=== PATIENT | female | born 1935 | race Caucasian/White ===

== ENCOUNTER 2016-12-28 10:48 | Emergency (ER) | payer OTHER ==
[~2016-12-28] VITALS: Ht 167.6 cm; Wt 84.0 kg
[~2016-12-28 10:48] MED LIST: ASPEC325 PO; CHN5 PO; CLB100 PO; CRS10 PO; EZET10TA63 PO; FLX10 PO; LISI-725 PO; LSX20 PO; METO50TA7 PO; NTRGSL/4 UT; OXYC-57 PO
[2016-12-28 10:51] VITALS: TEMP 36.4; Ht 167.6 cm; Wt 84.0 kg
[2016-12-28 11:23] VITALS: O2SAT 93
[2016-12-28 11:43] LABS: BASO % 0.3 %; BASO ABS # 0.02 K/uL (0-0.2); COMPLETE YES; EOS % 2.2 %; HEMATOCRIT 40.5 % (37-47); IG% 0.1 %; LYMPH % 15.9 %; MEAN CORPUSCULAR HEMOGLOBIN 30.8 pg (25-34); MEAN CORPUSCULAR HGB CONC 33.8 g/dl (32-36); MEAN PLATELET VOLUME 10.6 fL (7.4-10.4); MONO % 6.7 %; NEUT % 74.8 %; PLATELET COUNT 211 K/uL (130-400); RED BLOOD COUNT 4.45 M/uL (4.2-5.4); WHITE BLOOD COUNT 7.56 K/uL (4.8-10.8)
[2016-12-28 11:51] LABS: ALT/SGPT 14 U/L (12-78); AST/SGOT 17 U/L (15-37); BLOOD UREA NITROGEN 15 mg/dl (7-18); BUN/CREATININE RATIO 8.8 (10-20); CARBON DIOXIDE 28 mmol/L (21-32); CHLORIDE 102 mmol/L (98-107); GLUCOSE 219 mg/dl (70-99); PARTIAL THROMBOPLASTIN RATIO 1.1; POTASSIUM 4.2 mmol/L (3.5-5.1); SODIUM 141 mmol/L (136-145)
--- NOTE | 2016-12-28 11:55 | EMERGENCY ROOM VISIT NOTE ---
History Report prepared by Juan Pablo: Shwetha Erazo Under the Supervision of: Dr. Sarwat Soliman M.D. First contact with patient: 11:24 Chief Complaint: WEAKNESS Stated Complaint: CAN'T WALK Nursing Triage Summary: "I can't walk." Pt reports fell last night. Pt reports generalized pain, nausea , weakness. Pt reports numbness in right arm and bilateral legs for several days. Pt was seen at PCP and was told she had restless leg syndrome. History of Present Illness The patient is a 81 year old female who presents to the Emergency Room with complaints of an episode of weakness that started three days ago. She states that she went to [facility] two weeks ago for pain in her legs that went to her chest. This pain is only in her right leg and feels like her heart is "beating in her leg". She notes that the pain starts in her toes and works its way to her hips. She reports numbness in her left leg. She states that the pain usually leaves in 3-4 minutes after onset. Last night, she notes that she fell from stubbing her toe because she was too weak to pick her feet up the whole way. She reports that she did hit her head during the fall. The patient complains of numbness in her left leg. throbbing in her right leg, and some nausea. She denies any headache, vomiting, abdominal pain, and urinary symptoms. The patient reports that her last bowel movement was yesterday. Source of History: patient Onset: three days ago Position: other (global) Quality: other (weak) Timing: constant Associated Symptoms: + nausea, + numbness, No abdominal pain, No headache, No urinary symptoms, No vomiting Note: The patient complains of throbbing in her right leg. Review of Systems All systems have been listed, reviewed, and are negative other than those previously mentioned. Please see Additional Medical History Sheet. Past Medical & Surgical Medical Problems: (1) Hx of blood clots Family History No pertinent family history stated. Social History Smoking Status: Former Smoker Marital Status: Housing Status: lives with significant other Current/Historical Medications Scheduled Aspirin (Aspirin Ec), 81 MG PO DAILY Cyanocobalamin (Vitamin B12 500MCG), 1,000 MCG PO DAILY Fish Oil ([place]ook-3), 1 CAP PO DAILY Lisinopril (Zestril), 20 MG PO DAILY Metoprolol Succ (Toprol Xl) (Toprol-Xl), 25 MG PO DAILY Nitroglycerin (Nitrostat), 0.4 MG UT PRN Simvastatin (Zocor), 40 MG PO QAM Scheduled PRN Cyclobenzaprine HCl (Cyclobenzaprine HCl), 10 MG PO TID PRN for Muscle Spasms Tramadol (Ultram), 50 MG PO Q8H PRN for Pain Allergies Coded Allergies: Acetaminophen (Verified Allergy, Mild, 12/28/16) Diclofenac (Verified Allergy, Mild, 12/28/16) Orphenadrine (Verified Allergy, Mild, 12/28/16) Penicillins (Verified Allergy, Mild, 12/28/16) Phenytoin (Verified Allergy, Mild, 12/28/16) Uncoded Allergies: ANTIPARKINSON (Allergy, Mild, 10/19/09) Physical Exam Vital Signs Date Time Temp Pulse Resp B/P Pulse Ox O2 Delivery O2 Flow Rate FiO2 12/28/16 15:06 110 12/28/16 14:02 113 22 110/60 95 Room Air 12/28/16 11:55 119 18 137/87 93 Room Air 12/28/16 11:23 93 Room Air 12/28/16 11:14 128 12/28/16 10:51 36.4 70 20 155/78 93 Room Air Physical Exam GENERAL: Patient awake, alert, oriented x 3. Patient follows commands. Patient does not appear toxic. Patient is adequately hydrated and well- nourished. SKIN: No erythema, pallor, cyanosis or rash HEENT: Normal head, pupils equal, reactive to light and accommodation. Ecchymosis around right orbit. Oral cavity and posterior pharynx appear normal. Neck: Without adenopathy, no neck vein distention. LUNGS: Clear to auscultation. No wheezes, no rales, no rhonchi. HEART: No murmurs. No gallops. No rubs ABDOMEN: No masses, no rebound, no hepatomegaly or splenomegaly. Obese. Soft, non-tender. EXTREMITIES: No signs of trauma. No pedal or pretibial edema. No calf or thigh tenderness. NEUROLOGIC: Cranial nerves II-XII within normal limits. Weakness in right arm and leg compared to left. NIH stoke score is 5. Medical Decision & Procedures ER Provider Diagnostic Interpretation: Radiology results as stated below per my review and radiologist interpretation: SINGLE VIEW CHEST CLINICAL HISTORY: Generalized weakness. FINDINGS: An AP, portable, upright chest radiograph is compared to chest x-ray and chest CT dated 04/22/2008. The examination is degraded by portable technique, apical lordotic positioning, and patient rotation. The heart is enlarged and there is atherosclerotic calcification of the thoracic aorta. The pulmonary vasculature is noncongested. Chronic interstitial thickening is unchanged. No airspace consolidation, large pleural effusion, or pneumothorax is seen. The skeletal structures are osteopenic. The bony thorax is grossly intact. IMPRESSION: Cardiomegaly with no acute cardiopulmonary abnormality. Electronically signed by: Skyler Quijano M.D. 12/28/2016 11:56 AM Dictated Date/Time: 12/28/2016 11:[address] SCAN OF THE BRAIN WITHOUT IV CONTRAST FINDINGS: Brain parenchyma: There are age-related involutional changes noting [id number] patchy subcortical and periventricular microangiopathic change. There is no hemorrhage or evidence of acute territorial ischemia by CT criteria. There is a noncalcified slightly hyperdense mass lesion centered in the high left parietal lobe adjacent to the falx as seen on image #23 with significant surrounding cytotoxic edema. This measures up to 2.0 cm. There is effacement of the overlying cortical sulci. No left right midline shift is seen. No extra-axial fluid collection is seen. Ventricles, sulci, cisterns: Prominent secondary to involutional change. Intracranial vasculature: There is atherosclerotic calcification of the cavernous carotid arteries. Calvarium: Unremarkable. Sinuses and mastoids: There is evidence of previous paranasal sinus surgery. Trace mucosal thickening is seen within the ethmoid sinuses. The remaining visualized paranasal sinuses are clear. The mastoid air cells are well pneumatized. Orbits: The bony orbits are grossly intact. There are bilateral ocular lens implants. There is an indeterminant 3 mm intraconal nodule in the left orbit seen on image #7. IMPRESSION: 1. There is a 2.0 cm high left parietal mass lesion with significant surrounding edema. This is pathologically indeterminant, and metastatic disease versus a primary brain tumor are the top differential considerations. Although this is located adjacent to the falciform ligament a meningioma is considered much less likely given the appearance of the lesion and lack of a dural tail. Contrast-enhanced MRI of the brain is recommended for further assessment. 2. No additional intracranial lesions are clearly identified by CT. 3. There is no hemorrhage, midline shift, or evidence of acute territorial ischemia by CT criteria. Electronically signed by: Skyler Quijano M.D. 12/28/2016 1:05 PM Dictated Date/Time: 12/28/2016 1:00 PM Laboratory Results 12/28/16 11:15 Red Blood Count 4.45, Mean Corpuscular Volume 91.0, Mean Corpuscular Hemoglobin 30.8, Mean Corpuscular Hemoglobin Concent 33.8, Mean Platelet Volume 10.6, Neutrophils (%) (Auto) 74.8, Lymphocytes (%) (Auto) 15.9, Monocytes (%) (Auto) 6.7, Eosinophils (%) (Auto) 2.2, Basophils (%) (Auto) 0.3, Neutrophils # (Auto) 5.65, Lymphocytes # (Auto) 1.20, Monocytes # (Auto) 0.51, Eosinophils # (Auto) 0.17, Basophils # (Auto) 0.02 12/28/16 11:15 Test 12/28/16 11:15 12/28/16 11:50 White Blood Count 7.56 K/uL (4.8-10.8) Red Blood Count 4.45 M/uL (4.2-5.4) Hemoglobin 13.7 g/dL (12.0-16.0) Hematocrit 40.5 % (37-47) Mean Corpuscular Volume 91.0 fL (80-100) Mean Corpuscular Hemoglobin 30.8 pg (25-34) Mean Corpuscular Hemoglobin Concent 33.8 g/dl (32-36) Platelet Count 211 K/uL (130-400) Mean Platelet Volume 10.6 fL (7.4-10.4) Neutrophils (%) (Auto) 74.8 % Lymphocytes (%) (Auto) 15.9 % Monocytes (%) (Auto) 6.7 % Eosinophils (%) (Auto) 2.2 % Basophils (%) (Auto) 0.3 % Neutrophils # (Auto) 5.65 K/uL (1.4-6.5) Lymphocytes # (Auto) 1.20 K/uL (1.2-3.4) Monocytes # (Auto) 0.51 K/uL (0.11-0.59) Eosinophils # (Auto) 0.17 K/uL (0-0.5) Basophils # (Auto) 0.02 K/uL (0-0.2) RDW Standard Deviation 45.1 fL (36.4-46.3) RDW Coefficient of Variation 13.6 % (11.5-14.5) Immature Granulocyte % (Auto) 0.1 % Immature Granulocyte # (Auto) 0.01 K/uL (0.00-0.02) Prothrombin Time 11.0 SECONDS (9.0-12.0) Prothromb Time International Ratio 1.0 (0.9-1.1) Activated Partial Thromboplast Time 28.9 SECONDS (21.0-31.0) Partial Thromboplastin Ratio 1.1 Anion Gap 11.0 mmol/L (3-11) Est Creatinine Clear Calc Drug Dose 27.9 ml/min Estimated GFR () 32.0 Estimated GFR (Non- 27.6 BUN/Creatinine Ratio 8.8 (10-20) Calcium Level 9.0 mg/dl (8.5-10.1) Total Bilirubin 0.5 mg/dl (0.2-1) Aspartate Amino Transf (AST/SGOT) 17 U/L (15-37) Alanine Aminotransferase (ALT/SGPT) 14 U/L (12-78) Alkaline Phosphatase 77 U/L (45-117) Troponin I < 0.015 ng/ml (0-0.045) Total Protein 7.3 gm/dl (6.4-8.2) Albumin 3.4 gm/dl (3.4-5.0) Globulin 3.9 gm/dl (2.5-4.0) Albumin/Globulin Ratio 0.9 (0.9-2) Urine Color YELLOW Urine Appearance CLEAR (CLEAR) Urine pH 5.0 (4.5-7.5) Urine Specific [place] 1.014 (1.000-1.030) Urine Protein NEG (NEG) Urine Glucose (UA) NEG (NEG) Urine Ketones NEG (NEG) Urine Occult Blood NEG (NEG) Urine Nitrite NEG (NEG) Urine Bilirubin NEG (NEG) Urine Urobilinogen NEG (NEG) Urine Leukocyte Esterase TRACE (NEG) Urine WBC (Auto) 1-5 /hpf (0-5) Urine RBC (Auto) 0-4 /hpf (0-4) Urine Hyaline Casts (Auto) 1-5 /lpf (0-5) Urine Epithelial Cells (Auto) 20-30 /lpf (0-5) Urine Bacteria (Auto) NEG (NEG) Laboratory results as stated above per my review. ECG Indication: weakness Rate (beats per minute): 109 Rhythm: sinus tachycardia Findings: no acute ischemic change, prolonged QT Comparison ECG Date: 04/26/08 Change: no significant change ED Course 1124: Past medical records reviewed. The patient was evaluated in room B12. A complete history and physical examination was performed. 1503: I reevaluated the patient and informed her of her results. She will be going to MRI. 1526: The patient was signed out to Dr. Araya. Medical Decision Differential Diagnoses include CVA, TIA, metabolic disorder, UTI, pneumonia, other infection. Multiple labs, EKG and imaging were obtained. Please see above. CT reveals a mass in her left parietal area. An MRI was suggested. That study is now pending. I did discuss the case briefly with the patient and family members. The case was signed off to Dr. Araya at 1535. Impression Primary Impression: Intracranial mass Scribe Attestation The scribe's documentation has been prepared under my direction and personally reviewed by me in its entirety. I confirm that the note above accurately reflects all work, treatment, procedures, and medical decision making performed by me. Departure Information Dispostion Still a Patient Referrals No Doctor, Assigned (PCP) Patient Instructions My [facility]
[2016-12-28 11:56] LABS: ALB/GLOB RATIO 0.9 (0.9-2); ALKALINE PHOSPHATASE 77 U/L (45-117)
--- NOTE | 2016-12-28 11:59 | DIAGNOSTIC IMAGING REPORT ---
SINGLE VIEW CHEST CLINICAL HISTORY: Generalized weakness. FINDINGS: An AP, portable, upright chest radiograph is compared to chest x-ray and chest CT dated 04/22/2008. The examination is degraded by portable technique, apical lordotic positioning, and patient rotation. The heart is enlarged and there is atherosclerotic calcification of the thoracic aorta. The pulmonary vasculature is noncongested. Chronic interstitial thickening is unchanged. No airspace consolidation, large pleural effusion, or pneumothorax is seen. The skeletal structures are osteopenic. The bony thorax is grossly intact. IMPRESSION: Cardiomegaly with no acute cardiopulmonary abnormality. Electronically signed by: Skyler Quijano M.D. 12/28/2016 11:56 AM Dictated Date/Time: 12/28/2016 11:55 AM
[2016-12-28 12:01] LABS: URINE APPEARANCE CLEAR (CLEAR); URINE BILIRUBIN NEG (NEG); URINE COLOR YELLOW; URINE EPITHELIAL CELL AUTO 20-30 /lpf (0-5); URINE NITRITE NEG (NEG); URINE SPECIFIC GRAVITY 1.014 (1.000-1.030); UROBILINOGEN NEG (NEG); ZZURINE CULT IF INDIC CATH NO
[2016-12-28 12:02] LABS: MANUAL MICROSCOPIC REQUIRED? NO; REVIEW REQ? NO
--- NOTE | 2016-12-28 13:07 | DIAGNOSTIC IMAGING REPORT ---
CT SCAN OF THE BRAIN WITHOUT IV CONTRAST CLINICAL HISTORY: Right-sided weakness. COMPARISON STUDY: No priors. TECHNIQUE: Unenhanced axial CT scan of the brain is performed from the vertex to the skull base. CT DOSE: 537.48 mGy.cm FINDINGS: Brain parenchyma: There are age-related involutional changes noting [id number] patchy subcortical and periventricular microangiopathic change. There is no hemorrhage or evidence of acute territorial ischemia by CT criteria. There is a noncalcified slightly hyperdense mass lesion centered in the high left parietal lobe adjacent to the falx as seen on image #23 with significant surrounding cytotoxic edema. This measures up to 2.0 cm. There is effacement of the overlying cortical sulci. No left right midline shift is seen. No extra-axial fluid collection is seen. Ventricles, sulci, cisterns: Prominent secondary to involutional change. Intracranial vasculature: There is atherosclerotic calcification of the cavernous carotid arteries. Calvarium: Unremarkable. Sinuses and mastoids: There is evidence of previous paranasal sinus surgery. Trace mucosal thickening is seen within the ethmoid sinuses. The remaining visualized paranasal sinuses are clear. The mastoid air cells are well pneumatized. Orbits: The bony orbits are grossly intact. There are bilateral ocular lens implants. There is an indeterminant 3 mm intraconal nodule in the left orbit seen on image #7. IMPRESSION: 1. There is a 2.0 cm high left parietal mass lesion with significant surrounding edema. This is pathologically indeterminant, and metastatic disease versus a primary brain tumor are the top differential considerations. Although this is located adjacent to the falciform ligament a meningioma is considered much less likely given the appearance of the lesion and lack of a dural tail. Contrast-enhanced MRI of the brain is recommended for further assessment. 2. No additional intracranial lesions are clearly identified by CT. 3. There is no hemorrhage, midline shift, or evidence of acute territorial ischemia by CT criteria. Electronically signed by: Skyler Quijano M.D. 12/28/2016 1:05 PM Dictated Date/Time: 12/28/2016 1:00 PM
[2016-12-28] MEDS ORDERED: ASPI81TA28 PO (13:38)
[2016-12-28] MEDS ORDERED: TRAM-10 PO (13:38)
[2016-12-28] MEDS ORDERED: FLX10 PO (13:38)
[2016-12-28] MEDS ORDERED: CYAN500T13 PO (13:40)
[2016-12-28] MEDS ORDERED: OMEG10007 PO (13:40)
[2016-12-28] MEDS ORDERED: SIMV40TA2 PO (13:40)
[2016-12-28] MEDS ORDERED: DEXAMETHASONE SOD INJ 10 MG/ML VIAL IV ONE (16:00)
[2016-12-28 17:47] VITALS: BP 149/72; PULSE 125; O2SAT 94
--- NOTE | 2016-12-28 22:05 | EMERGENCY ROOM VISIT NOTE ---
ED Visit Note First contact with patient: 15:39 Patient is an 81-year-old female that was evaluated by Dr. Soliman initially. She had complete workup along with a CT which showed a likely brain tumor with surrounding edema. Patient was signed out to me awaiting an MRI. At this time I discussed with the patient and reviewed the CT. I gave her IV steroids and contacted [facility]. I felt was prudent to transfer this patient at this time with a brain mass for further evaluation since she had a focal deficit. I discussed this with the neurosurgeon at [facility], patient was accepted. Patient was transferred via EMS and the risk and benefits were explained to the patient at length.
== END 2016-12-28 17:49 | disposition short-term general hospital (02) ==
LOC: C.EDB 10:49
DX: G93.9 Disorder of brain, unspecified (principal); Z86.2 Personal history of diseases of the blood and blood-forming organs and certain disorders involving the immune mechanism; Z87.891 Personal history of nicotine dependence; Z79.82 Long term (current) use of aspirin; Z79.899 Other long term (current) drug therapy; Z88.0 Allergy status to penicillin; Z88.6 Allergy status to analgesic agent; Z88.8 Allergy status to other drugs, medicaments and biological substances

== ENCOUNTER 2017-01-27 17:35 | Emergency (ER) | payer OTHER ==
[~2017-01-27] VITALS: Ht 170.2 cm; Wt 87.9 kg
[~2017-01-27 17:35] MED LIST changes: -ASPEC325 PO; +ASPI81TA28 PO; -CHN5 PO; -CLB100 PO; -CRS10 PO; +CYAN500T13 PO; -EZET10TA63 PO; -LSX20 PO; +OMEG10007 PO; -OXYC-57 PO; +SIMV40TA2 PO; +TRAM-10 PO
[2017-01-27 17:49] LABS: BASO % 0.1 %; BASO ABS # 0.01 K/uL (0-0.2); COMPLETE YES; EOS % 1.4 %; HEMATOCRIT 35.2 % (37-47); IG% 1.9 %; LYMPH ABS # 1.55 K/uL (1.2-3.4); MEAN CELL VOLUME 91.2 fL (80-100); MEAN CORPUSCULAR HEMOGLOBIN 29.8 pg (25-34); MEAN CORPUSCULAR HGB CONC 32.7 g/dl (32-36); MEAN PLATELET VOLUME 9.7 fL (7.4-10.4); MONO % 7.4 %; NEUT % 75.2 %; PLATELET COUNT 186 K/uL (130-400); RED BLOOD COUNT 3.86 M/uL (4.2-5.4); WHITE BLOOD COUNT 11.11 K/uL (4.8-10.8)
[2017-01-27 17:58] LABS: PARTIAL THROMBOPLASTIN RATIO 1.2; PROTHROMBIN TIME (PATIENT) 10.7 SECONDS (9.0-12.0)
--- NOTE | 2017-01-27 18:01 | DIAGNOSTIC IMAGING REPORT ---
CT HEAD WITHOUT CONTRAST (CT) CLINICAL HISTORY: Right-sided weakness. Brain carcinoma. COMPARISON STUDY: 12/28/2016 TECHNIQUE: Axial CT of the brain is performed from the vertex to the skull base. IV contrast was not administered for this examination. CT DOSE: 751.47 mGy.cm FINDINGS: Again evident is a left high parietal parafalcine 2 cm mass. There is surrounding vasogenic edema. Since the prior study, the patient has developed a perilesional hemorrhage measuring 34 mm. There is no CT evidence of acute cortical infarction. There is no significant midline shift. There are patchy white matter hypodensities likely on a small vessel basis. There is no evidence of pathologic ventricular dilatation. There is no evidence of acute sinusitis IMPRESSION: 1. 2 cm high left parietal parafalcine mass 2. Interval development of a perilesional 3.4 cm intraparenchymal hemorrhage 3. Vasogenic edema within the left parietal white matter Electronically signed by: Arnie Walker M.D. 01/27/2017 5:59 PM Dictated Date/Time: 01/27/2017 5:56 PM
[2017-01-27 18:14] LABS: BLOOD UREA NITROGEN 16 mg/dl (7-18); BUN/CREATININE RATIO 11.6 (10-20); CALCIUM 9.1 mg/dl (8.5-10.1); CARBON DIOXIDE 31 mmol/L (21-32); CHLORIDE 100 mmol/L (98-107); GLUCOSE 100 mg/dl (70-99); POTASSIUM 4.5 mmol/L (3.5-5.1); SODIUM 136 mmol/L (136-145)
[2017-01-27] MEDS ORDERED: DEXAMETHASONE SOD INJ 10 MG/ML VIAL IV ONE (18:15)
[2017-01-27 18:17] VITALS: Ht 170.2 cm; Wt 87.9 kg
[2017-01-27 18:24] LABS: CKMB/CK RATIO 2.2 (0-3.0)
[2017-01-27] MEDS ORDERED: SODIUM CHLORIDE 0.9% IV STA (18:30)
[2017-01-27] MEDS ORDERED: DESMOPRESSIN ACETATE IV STA (18:30)
--- NOTE | 2017-01-27 18:32 | DIAGNOSTIC IMAGING REPORT ---
CHEST ONE VIEW PORTABLE CLINICAL HISTORY: stroke symptoms WEAKNESS COMPARISON STUDY: 12/28/2016 FINDINGS: The heart is at the upper limits of normal in size. There is mild aortic tortuosity/ectasia. There is no focal pulmonary consolidation. There are no pleural effusions. There is mild central vascular prominence without evidence of overt failure.[ IMPRESSION: No active disease in the chest. Electronically signed by: Arnie Walker M.D. 01/27/2017 6:30 PM Dictated Date/Time: 01/27/2017 6:30 PM
[2017-01-27] MEDS ORDERED: IPRA1AER2 INH (18:40)
[2017-01-27] MEDS ORDERED: SIMV20TA2 PO (18:40)
[2017-01-27] MEDS ORDERED: DOCU-94 PO (18:40)
[2017-01-27] MEDS ORDERED: AMLO-110 PO (18:40)
[2017-01-27] MEDS ORDERED: GLC/500 PO (18:40)
[2017-01-27] MEDS ORDERED: LISI-461 PO (18:40)
[2017-01-27] MEDS ORDERED: CYAN10005 PO (18:40)
[2017-01-27] MEDS ORDERED: BRIM0.1S OPB (18:40)
[2017-01-27] MEDS ORDERED: METO25TA3 PO (18:40)
[2017-01-27] MEDS ORDERED: SENN-65 PO (18:40)
--- NOTE | 2017-01-27 19:13 | EMERGENCY ROOM VISIT NOTE ---
History Report prepared by Juan Pablo: Shwetha Erazo Under the Supervision of: Dr. Matty Palm M.D. First contact with patient: 17:36 Chief Complaint: WEAKNESS Stated Complaint: WEAKNESS History of Present Illness The patient is an 82 year old female who presents to the Emergency Room with complaints of an episode of weakness in her right arm starting just prior to arrival. She states that she was going to the bathroom and started to experience the weakness. She reports that she decided to call 911 because she had just had her first treatment of radiation therapy today for her brain tumors. The patient notes that she does not know the specific cancer. The patient denies any neck pain, headache, chest pain, shortness of breath, and abdominal pain. 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 Her brain tumor was found one month ago at this facility and she was transferred to [place]. Source of History: patient Onset: prior to arrival Position: other (global) Quality: other (global) Timing: other (episode) Associated Symptoms: + weakness, No SOB, No abdominal pain, No chest pain, No headache, No neck pain Review of Systems See HPI for pertinent positives & negatives. A total of 10 systems reviewed and were otherwise negative. Past Medical & Surgical Medical Problems: (1) Hx of blood clots Family History No pertinent family history Social History Smoking Status: Former Smoker Marital Status: Housing Status: lives with significant other Current/Historical Medications Scheduled Amlodipine (Norvasc), 5 MG PO QAM Aspirin (Aspirin Ec), 81 MG PO DAILY Brimonidine Tartrate (Alphagan P Oph), 1 DROP OPB TID Cyanocobalamin (Vitamin B-12), 1,000 MCG PO QAM Docusate Sodium (Colace), 100 MG PO BID Fish Oil ([place]-3), 1 CAP PO DAILY Ipratropium-Albuterol (Combivent Respimat), 1 PUFFS INH BID Lisinopril (Zestril), 10 MG PO QAM Metformin Hcl (Glucophage), 500 MG PO BIDM Metoprolol Succ (Toprol Xl) (Toprol-Xl), 25 MG PO QAM Senna/Docusate Sod (Senokot S), 1 TAB PO BID Simvastatin (Zocor), 20 MG PO HS Allergies Coded Allergies: Acetaminophen (Verified Allergy, Mild, 12/28/16) Diclofenac (Verified Allergy, Mild, 12/28/16) Orphenadrine (Verified Allergy, Mild, 12/28/16) Penicillins (Verified Allergy, Mild, 12/28/16) Phenytoin (Verified Allergy, Mild, 12/28/16) Uncoded Allergies: ANTIPARKINSON (Allergy, Mild, 10/19/09) Physical Exam Vital Signs Date Time Temp Pulse Resp B/P Pulse Ox O2 Delivery O2 Flow Rate FiO2 01/27/17 20:31 36.8 106 22 129/72 96 01/27/17 20:28 36.8 106 22 129/72 96 01/27/17 20:07 36.8 106 22 129/72 96 01/27/17 20:01 37.0 100 30 144/69 96 01/27/17 19:53 36.9 112 16 144/64 96 01/27/17 19:31 121/53 01/27/17 19:30 98 21 97 01/27/17 19:25 101 28 96 01/27/17 19:20 104 19 94 01/27/17 19:17 157/79 01/27/17 19:15 101 18 95 01/27/17 19:10 98 20 95 01/27/17 19:05 98 23 95 01/27/17 19:00 96 16 95 01/27/17 18:55 89 36 94 01/27/17 18:50 88 22 96 01/27/17 18:45 86 27 94 01/27/17 18:40 88 21 95 01/27/17 18:35 88 27 95 01/27/17 18:30 88 16 01/27/17 18:25 89 23 94 01/27/17 18:20 91 23 95 01/27/17 18:18 95 Room Air 01/27/17 18:15 88 25 95 01/27/17 18:10 178 27 01/27/17 18:09 37.0 80 18 133/77 94 Room Air 01/27/17 18:06 136/83 01/27/17 18:05 175 20 01/27/17 18:01 87 01/27/17 18:00 87 19 95 01/27/17 17:36 133/77 Physical Exam GENERAL: Patient is elderly appearing and in minimal distress. HEENT: No acute trauma, normocephalic atraumatic, mucous membranes moist, no nasal congestion, no scleral icterus. NECK: No stridor, no adenopathy, no meningismus, trachea is midline. LUNGS: No dyspnea. Clear to auscultation and equal bilaterally. No wheeze, no rhonchi. HEART: Regular rate and rhythm. No murmurs, rubs, gallops appreciated. ABDOMEN: Soft, nontender, bowel sounds positive, no masses appreciated, no peritonitis. BACK: No midline tenderness, no CVA tenderness EXTREMITIES: Normal motion all extremities, no cyanosis, no edema. NEUROLOGIC: Alert and oriented, cranial nerves grossly intact. Complete paralysis with severely decreased sensation of entire right arm, mild flexion abilities of right leg and mildly decreased sensation, mild right facial droop. SKIN: No rash, no jaundice, no diaphoresis. Medical Decision & Procedures ER Provider Diagnostic Interpretation: Radiology results and stated below per my review and radiologist interpretation: CT HEAD WITHOUT CONTRAST (CT) CLINICAL HISTORY: Right-sided weakness. Brain carcinoma. COMPARISON STUDY: 12/28/2016 TECHNIQUE: Axial CT of the brain is performed from the vertex to the skull base. IV contrast was not administered for this examination. CT DOSE: 751.47 mGy.cm FINDINGS: Again evident is a left high parietal parafalcine 2 cm mass. There is surrounding vasogenic edema. Since the prior study, the patient has developed a perilesional hemorrhage measuring 34 mm. There is no CT evidence of acute cortical infarction. There is no significant midline shift. There are patchy white matter hypodensities likely on a small vessel basis. There is no evidence of pathologic ventricular dilatation. There is no evidence of acute sinusitis IMPRESSION: 1. 2 cm high left parietal parafalcine mass 2. Interval development of a perilesional 3.4 cm intraparenchymal hemorrhage 3. Vasogenic edema within the left parietal white matter Electronically signed by: Arnie Walker M.D. 01/27/2017 5:59 PM Dictated Date/Time: 01/27/2017 5:56 PM CHEST ONE VIEW PORTABLE CLINICAL HISTORY: stroke symptoms WEAKNESS COMPARISON STUDY: 12/28/2016 FINDINGS: The heart is at the upper limits of normal in size. There is mild aortic tortuosity/ectasia. There is no focal pulmonary consolidation. There are no pleural effusions. There is mild central vascular prominence without evidence of overt failure.[ IMPRESSION: No active disease in the chest. Electronically signed by: Arnie Walker M.D. 01/27/2017 6:30 PM Dictated Date/Time: 01/27/2017 6:30 PM Laboratory Results 01/27/17 17:17 Red Blood Count 3.86, Mean Corpuscular Volume 91.2, Mean Corpuscular Hemoglobin 29.8, Mean Corpuscular Hemoglobin Concent 32.7, Mean Platelet Volume 9.7, Neutrophils (%) (Auto) 75.2, Lymphocytes (%) (Auto) 14.0, Monocytes (%) (Auto) 7.4, Eosinophils (%) (Auto) 1.4, Basophils (%) (Auto) 0.1, Neutrophils # (Auto) 8.37, Lymphocytes # (Auto) 1.55, Monocytes # (Auto) 0.82, Eosinophils # (Auto) 0.15, Basophils # (Auto) 0.01 01/27/17 17:17 Test 01/27/17 17:17 White Blood Count 11.11 K/uL (4.8-10.8) Red Blood Count 3.86 M/uL (4.2-5.4) Hemoglobin 11.5 g/dL (12.0-16.0) Hematocrit 35.2 % (37-47) Mean Corpuscular Volume 91.2 fL (80-100) Mean Corpuscular Hemoglobin 29.8 pg (25-34) Mean Corpuscular Hemoglobin Concent 32.7 g/dl (32-36) Platelet Count 186 K/uL (130-400) Mean Platelet Volume 9.7 fL (7.4-10.4) Neutrophils (%) (Auto) 75.2 % Lymphocytes (%) (Auto) 14.0 % Monocytes (%) (Auto) 7.4 % Eosinophils (%) (Auto) 1.4 % Basophils (%) (Auto) 0.1 % Neutrophils # (Auto) 8.37 K/uL (1.4-6.5) Lymphocytes # (Auto) 1.55 K/uL (1.2-3.4) Monocytes # (Auto) 0.82 K/uL (0.11-0.59) Eosinophils # (Auto) 0.15 K/uL (0-0.5) Basophils # (Auto) 0.01 K/uL (0-0.2) RDW Standard Deviation 46.3 fL (36.4-46.3) RDW Coefficient of Variation 14.1 % (11.5-14.5) Immature Granulocyte % (Auto) 1.9 % Immature Granulocyte # (Auto) 0.21 K/uL (0.00-0.02) Prothrombin Time 10.7 SECONDS (9.0-12.0) Prothromb Time International Ratio 1.0 (0.9-1.1) Activated Partial Thromboplast Time 29.9 SECONDS (21.0-31.0) Partial Thromboplastin Ratio 1.2 Anion Gap 5.0 mmol/L (3-11) Estimated GFR () 40.5 Estimated GFR (Non- 34.9 BUN/Creatinine Ratio 11.6 (10-20) Calcium Level 9.1 mg/dl (8.5-10.1) Total Creatine Kinase 49 U/L (26-192) Creatine Kinase MB 1.1 ng/ml (0.5-3.6) Creatine Kinase MB Ratio 2.2 (0-3.0) Troponin I < 0.015 ng/ml (0-0.045) Laboratory results as reviewed by me. Medications Administered Medications (Trade) Dose Ordered Sig/Mayela Route Start Time Stop Time Status Last Admin Dose Admin Dexamethasone Sodium Phosphate 10 mg 10 mg NOW ONCE IV 01/27/17 18:15 01/27/17 18:16 DC 01/27/17 18:23 10 MG Desmopressin Acetate/Sodium Chloride (Ddavp Inj/Nss 50ml) 56.5 ml @ 100 mls/hr NOW STAT IV 01/27/17 18:30 01/27/17 19:03 DC 01/27/17 18:47 100 MLS/HR ECG Indication: weakness Rate (beats per minute): 70 Rhythm: sinus rhythm Findings: no acute ischemic change, no ectopy ED Course 1735: The patient was evaluated in room B4. A complete history and physical exam was performed. 1801: I talked with the patient about her stereotactic radiation procedure this morning and she states that Dr. Calzada performed the procedure. The patient is DNR, but stated she would be intubated for surgery if need be. 1808: I discussed the patient's case with Dr. Delatorre of neurology in [place]. He agrees that the patient needs to be transferred and advises DDAVP, white platelets if possible, and Decadron. 1814: Ordered Decadron Inj 10 mg IV. 1815: I discussed the patient's case with Dr. Deluna accepts, however there are no beds available. Currently they are trying to decide where to place her. 1829: Ordered Desmopressin Acetate 26 mcg/ Sodium Chloride 56.5 ml @ 100 mls/hr IV. 1833: [facility] called back and stated they do have a bed available. They did not give a bed number so the transfer is still pending. 184: I revaluated the patient and she is stable. I explained the pros and cons of platelet transfusion and she agrees to it. 1850: [facility] still has not released the bed for the patient, but still recognizes that they have one available for her. 1921: [facility] called and stated the bed is available, but is currently being cleaned. 1927: [facility] stated that the bed is now available and ready. 0: Upon reevaluation, the patient is resting comfortably. Discussed results and treatment plan with the patient. She verbalized understanding and agreement with the treatment plan. The patient will be evaluated for further management. 2020: I reevaluated the patient and she is stable. The flight crew is at bedside. Medical Decision Differential: Sepsis, Infectious (UTI/Pneumonia/Meningitis/etc), Metabolic/ Electrolyte Abnormality, Cardiac, Hepatic, Endocrine, Toxicologic, Neurologic, amongst other pathologies entertained. 81 yr old pleasant female arrives with complete paralysis right arm, almost complete paralysis right leg and mild right facial droop as well as right arm paresthesias. Acutely occurring within 30 minutes of arrival s/p radiation therapy of brain mass. 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 On 81mg ASA daily for blood thinner. No trauma, denies headache/ neck pain. She immediately was sent to CT confirming 3.4 cm bleed around known mass with findings of edema as well. Immediately placed call to [facility] as this is where she had radiation therapy today. Discussed with [facility] who feel conservative treatment in this DNR patient with use of steroids, DDAVP and Plts to start out. Accepted by Dr Deluna (hospitalist). Prolonged stay in ED while awaiting bed to be assigned and patient to be transferred. Stable throughout with A&O x 4 and normal vitals with no respiratory issues. She did not regain any notable use of right side while in ED. Many evaluations of patient done and family discussed case on several occasions and they agree with plan. Consults Time Called: 1757 Consulting Physician: Dr. Delatorre- [place] neurology Returned Call: 1808 I discussed the patient's case with Dr. Delatorre of neurology in [place]. He agrees that the patient needs to be transferred and advises DDAVP, white platelets if possible, and Decadron. Additional Consults: Time Called: 1809 Consulted Physician: Dr. Deluna- [place] hospitalist Returned Call: 1815 Additional Comments: I discussed the patient's case with Dr. Deluna accepts, however there are no beds available. Currently they are trying to decide where to place her. Impression Primary Impression: Intraparenchymal hemorrhage of brain Additional Impression: Left parietal mass Critical Care I have personally spent greater than 90 minutes of critical care time in the direct management of this patient. This was a life/limb threatening event. This includes time spent evaluating patient, direct bedside care, chart review, placing orders, interpretation of diagnostic studies, discussion with consultants, patient, and family members, as well as other required patient management activities. This 90 minutes is in excess of all separately billable procedures. Scribe Attestation The scribe's documentation has been prepared under my direction and personally reviewed by me in its entirety. I confirm that the note above accurately reflects all work, treatment, procedures, and medical decision making performed by me. Departure Information Dispostion Transfer Acute Care Facility Referrals No Doctor, Assigned (PCP) Patient Instructions My [facility] Problem Qualifiers
[2017-01-27 19:53] VITALS: BP 144/64; PULSE 112; TEMP 36.9; O2SAT 96
[2017-01-27 20:01] VITALS: BP 144/69; PULSE 100; TEMP 37; O2SAT 96
[2017-01-27 20:07] VITALS: BP 129/72; PULSE 106; TEMP 36.8; O2SAT 96
[2017-01-27 20:31] VITALS: BP 129/72; PULSE 106; TEMP 36.8; O2SAT 96
== END 2017-01-27 20:29 | disposition short-term general hospital (02) ==
LOC: EDBD 17:35 → C.EDB 17:38
DX: I61.9 Nontraumatic intracerebral hemorrhage, unspecified (principal); G93.9 Disorder of brain, unspecified; Z85.841 Personal history of malignant neoplasm of brain; Z86.2 Personal history of diseases of the blood and blood-forming organs and certain disorders involving the immune mechanism; Z87.891 Personal history of nicotine dependence; Z79.82 Long term (current) use of aspirin; Z79.899 Other long term (current) drug therapy; Z88.0 Allergy status to penicillin; Z88.6 Allergy status to analgesic agent; Z88.8 Allergy status to other drugs, medicaments and biological substances